=== PATIENT | male | born 1965 | race African-American/Black ===

== ENCOUNTER 2018-08-05 14:50 | Observation (INO) | payer BC ==
[2018-08-05] MEDS ORDERED: NA CHLORIDE 0.9% 1,000 ML ONE (15:19)
[2018-08-05] MEDS ORDERED: ASPIRIN 81 MG CHEWABLE TABLET ONE (15:19)
[2018-08-05] MEDS ORDERED: NITROGLYCERIN 0.4 MG/TAB SL ONE (15:19)
[2018-08-05] MEDS ORDERED: ACETAMINOPHEN 500 MG TAB ONE (15:32)
[2018-08-05 15:39] LABS: Protime INR 0.98
[2018-08-05 15:51] LABS: Absolute Lymphocytes (CBC) 2.5 K/uL (0.7-4.9); Absolute Monocytes 0.6 K/uL (0.1-1.3); Absolute Neutrophil 1.9 K/uL (1.8-8.0); Eosinophils % 2.8 % (0-4.4); Hematocrit 45.2 % (39.6-49.0); Lymphocytes % 47.9 % (15.3-44.8); MCH 32.9 pg (27.0-35.0); MCV 92.7 fL (80-100); MPV 8.3 fL (7.6-11.3); RBC Red Blood Cell Count 4.87 M/uL (4.33-5.43)
[2018-08-05 15:55] LABS: ALT/SGPT 19 U/L (12-78); AST/SGOT 20 U/L (15-37); Albumin 3.8 g/dL (3.4-5.0); Alkaline Phosphatase 118 U/L (45-117); BUN Blood Urea Nitrogen 13 mg/dL (7-18); Bicarbonate 23 mmol/L (21-32); Bilirubin Direct 0.1 mg/dL (0-0.2); Bilirubin Total 0.5 mg/dL (0.2-1.0); Glucose Level 81 mg/dL (74-106); Lipase 172 U/L (73-393); Magnesium 2.3 mg/dL (1.8-2.4); NT PRO-BNP 44 pg/mL (<125); Potassium 3.9 mmol/L (3.5-5.1); Protein, Total 7.8 g/dL (6.4-8.2); Sodium Level 140 mmol/L (136-145); Troponin (Emerg Dept Use Only) < 0.02 ng/mL (0.0-0.045)
[2018-08-05] MEDS ORDERED: FENTANYL CITR 100 MCG/2 ML ONE (16:33)
--- NOTE | 2018-08-05 17:08 | RAD REPORT ---
EXAM DESCRIPTION: CT - Chest Angio - 08/05/2018 4:41 pm CLINICAL HISTORY: Chest pain COMPARISON: None. TECHNIQUE: Dynamically enhanced axial 3 mm thick images of the chest were obtained during administra tion of <100> mL Isovue 370 IV contrast. Coronal and oblique reconstruction images were generated and reviewed. Exam utilizes a protocol for optimal evaluation of pulmonary arterial tree. Maximum intensity projections 3D imaging was utilized All CT scans are performed using dose optimization technique as appropriate and may include automated exposure control or mA/KV adjustment according to patient size. FINDINGS: A pulmonary embolus is not seen. Prominence of the main pulmonary artery may indicate pulm onary arterial hypertension A thoracic aortic aneurysm is not noted. A pleural effusion is not seen. A pericardial effusion is not seen. A lung consolidation is not present. Left upper lobe bulla are present. Largest measures 5 centimeter s IMPRESSION: Negative for a pulmonary embolism.
--- NOTE | 2018-08-05 17:09 | RAD REPORT ---
EXAM DESCRIPTION: Brittany Single View08/05/2018 3:36 pm CLINICAL HISTORY: Chest pain COMPARISON: December 2017 FINDINGS: A few areas of scarring are present within the left lung. Right lung appears clear. Heart is normal size
--- NOTE | 2018-08-05 18:02 | EDPHYS ---
Physician Documentation [facility] Name: Vu Park Age: 52 yrs Sex: Male : 1965 Arrival Date: 08/05/2018 Time: 14:58 Bed 30 Private MD: ED Physician John Sadler HPI: 08/05 15:15 This 52 yrs old Black Male presents to ER via Ambulatory with complaints of Shortness cp Of Breath, Chest Pain. 15:15 The patient or guardian reports chest pain that is located primarily in the anterior cp chest wall, left. 15:15 Onset: this morning, at 09:00. The pain radiates to the left arm. cp 15:15 The chest pain is described as aching. cp 15:15 Duration: The patient or guardian reports multiple episodes, that are intermittent. cp Historical: - Allergies: 15:01 Vicodin; hb - Home Meds: 15:01 Pravachol Oral [Active]; hb - PMHx: 15:01 Hyperlipidemia; Hypertension; hb - Immunization history:: Adult Immunizations up to date. - Social history:: Smoking status: Patient uses tobacco products, cigars. - Ebola Screening: : No symptoms or risks identified at this time. ROS: 15:20 Constitutional: Negative for body aches, chills, fever, poor PO intake. cp 15:20 Eyes: Negative for injury, pain, redness, and discharge. cp 15:20 ENT: Negative for drainage from ear(s), ear pain, sore throat, difficulty swallowing, difficulty handling secretions. 15:20 Neck: Negative for pain with movement, pain at rest, stiffness, tenderness, bony tenderness. 15:20 Cardiovascular: Positive for chest pain, Negative for edema, palpitations. 15:20 Respiratory: Positive for shortness of breath, Negative for cough, wheezing. 15:20 Abdomen/GI: Negative for abdominal pain, nausea, vomiting, and diarrhea, constipation, black/tarry stool, rectal bleeding. 15:20 Back: Negative for pain at rest, pain with movement, radiated pain. 15:20 : Negative for urinary symptoms. 15:20 Skin: Negative for cellulitis, diaphoresis, rash. 15:20 Neuro: Negative for altered mental status, headache, loss of consciousness, syncope, near syncope, weakness. 15:20 All other systems are negative. Exam: 15:15 ECG was reviewed by the Attending Physician. cp 15:30 Constitutional: The patient appears alert, awake, non-diaphoretic, non-toxic, well cp developed, well nourished, in obvious pain, uncomfortable. 15:30 Head/Face: Normocephalic, atraumatic. cp 15:30 Eyes: Pupils equal round and reactive to light, extra-ocular motions intact. Lids and cp lashes normal. Conjunctiva and sclera are non-icteric and not injected. Cornea within normal limits. Periorbital areas with no swelling, redness, or edema. ENT: Nares patent. No nasal discharge, no septal abnormalities noted. Tympanic membranes are normal and external auditory canals are clear. Oropharynx with no redness, swelling, or masses, exudates, or evidence of obstruction, uvula midline. Mucous membranes moist. Neck: Trachea midline, no thyromegaly or masses palpated, and no cervical lymphadenopathy. Supple, full range of motion without nuchal rigidity, or vertebral point tenderness. No Meningismus. Chest/axilla: Normal chest wall appearance and motion. Nontender with no deformity. No lesions are appreciated. 15:30 Cardiovascular: Rate: normal, Rhythm: regular, Heart sounds: murmur, not appreciated, cp rub, not appreciated, gallop, not appreciated, Edema: is not appreciated, JVD: is not appreciated. 15:30 Respiratory: the patient does not display signs of respiratory distress, Respirations: normal, no use of accessory muscles, no retractions, no splinting, no tachypnea, labored breathing, is not present, Breath sounds: are clear throughout, no decreased breath sounds, no stridor, no wheezing. 15:30 Abdomen/GI: Inspection: abdomen appears normal, Bowel sounds: active, all quadrants, Palpation: abdomen is soft and non-tender, in all quadrants, rebound tenderness, is not appreciated, involuntary guarding, is not appreciated. 15:30 Back: pain, is absent, ROM is normal. 15:30 Skin: cellulitis, is not appreciated, no rash present. 15:30 Neuro: Orientation: to person, place \T\ time. Mentation: lucid, able to follow commands, Cerebellar function: is grossly normal, Motor: moves all fours, strength is normal, Sensation: no obvious gross deficits. Vital Signs: 15:00 BP 140 / 90; Pulse 76; Resp 16; Temp 98; Pulse Ox 99% on R/A; Pain 8/10; hb 15:40 BP 134 / 90; Pulse 63; Resp 18; Pulse Ox 97% on R/A; Pain 5/10; mg2 16:23 BP 120 / 78; Pulse 70; Resp 18; Pulse Ox 98% ; Pain 4/10; mg2 17:41 BP 118 / 76; Pulse 55; Resp 18; Pulse Ox 98% on R/A; Pain 2/10; mg2 18:45 BP 125 / 79; Pulse 56; Resp 17; Pulse Ox 100% on R/A; mg2 19:40 BP 144 / 93; Pulse 58; Resp 18; Pulse Ox 100% on R/A; Pain 0/10; mg2 MDM: 15:02 Patient medically screened. cp 16:00 Differential diagnosis: abnormal EKG, acute myocardial infarction, acute pericarditis, cp chest wall pain, pancreatitis, pleurisy, pneumonia, pneumothorax, pulmonary embolus, stable angina, thoracic aortic disection, unstable angina. 17:32 The patient was given aspirin in the Emergency Department. Data reviewed: vital signs, nurses notes, lab test result(s), EKG, radiologic studies, CT scan, plain films. Test interpretation: by ED physician or midlevel provider: ECG, plain radiologic studies. Physician consultation: Yue Tierney MD was called at 17:33, left message on voicemail. 08/05 15:09 Order name: Basic Metabolic Panel 08/05 15:09 Order name: CBC with Diff 08/05 15:09 Order name: LFT's 08/05 15:09 Order name: Magnesium; Complete Time: 16:07 08/05 15:09 Order name: NT PRO-BNP; Complete Time: 16:07 cp 08/05 15:09 Order name: PT-INR; Complete Time: 16:07 08/05 15:09 Order name: Troponin (emerg Dept Use Only); Complete Time: 16:07 08/05 17:19 Interpretation: Within normal limits: TROPED < 0.02. 08/05 15:09 Order name: Lipase; Complete Time: 16:07 08/05 15:10 Order name: Basic Metabolic Panel; Complete Time: 16:07 EDDC 08/05 17:10 Interpretation: Normal except: CL 110; GFR 77. cp 15:10 Order name: CBC with Automated Diff; Complete Time: 16:07 EDDC 08/05 17:18 Interpretation: Normal except: MORA% 36.3; LYM% 47.9. / 15:10 Order name: Liver (Hepatic) Function; Complete Time: 16:07 EDDC 08/05 17:19 Interpretation: Normal except: ALK 118; GLOB 4.0; A/G 1.0. 08/05 18:23 Order name: Basic Metabolic Panel EDMS 08/05 18:23 Order name: Basic Metabolic Panel EDDC 08/05 18:23 Order name: CBC with Automated Diff EDDC 08/05 15:09 Order name: XRAY Chest (1 view); Complete Time: 17:18 08/05 17:18 Interpretation: Report review. 08/05 15:09 Order name: EKG; Complete Time: 15:10 08/05 15:23 Order name: CT Chest Angio; Complete Time: 17:09 08/05 17:19 Interpretation: Report reviewed. 08/05 18:23 Order name: CONS Physician Consult EDDC 08/05 18:23 Order name: Echo with Doppler EDDC 08/05 18:23 Order name: CBC with Automated Diff EDDC 08/05 18:23 Order name: Lipid Profile EDDC 08/05 18:23 Order name: Lipid Profile EDDC 08/05 18:23 Order name: Troponin I EDDC 08/05 18:23 Order name: Troponin I EDDC 08/05 18:23 Order name: Troponin I EDDC 08/05 15:09 Order name: Cardiac monitoring; Complete Time: 15:19 08/05 15:09 Order name: EKG - Nurse/Tech; Complete Time: 15:19 08/05 15:09 Order name: IV Saline Lock; Complete Time: 15:20 08/05 15:09 Order name: Labs collected and sent; Complete Time: 15:20 08/05 15:09 Order name: O2 Per Protocol; Complete Time: 15:20 08/05 15:09 Order name: O2 Sat Monitoring; Complete Time: 15:20 08/05 18:23 Order name: Heart Healthy EDMS EC:15 Rate is 74 beats/min. Rhythm is regular. MS interval is prolonged at 212 msec. QRS cp interval is prolonged at 112 msec. QT interval is normal. Interpreted by me. Reviewed by me. Administered Medications: 15:19 Drug: Nitroglycerin 0.4 mg Route: Sublingual; mg2 15:41 Follow up: Response: No adverse reaction; Pain is decreased mg2 15:19 Drug: Aspirin Chewable Tablet 324 mg Route: PO; mg2 16:23 Follow up: Response: No adverse reaction mg2 15:19 Drug: NS 0.9% 1000 ml Route: IV; Rate: 1 bolus; Site: right antecubital; mg2 15:31 Drug: Tylenol 1000 mg Route: PO; mg2 16:33 Follow up: Response: No adverse reaction; Pain is unchanged, physician notified mg2 16:48 Drug: fentaNYL (PF) 50 mcg Route: IVP; Site: right antecubital; mg2 18:03 Follow up: Response: No adverse reaction; Marked relief of symptoms mg2 Disposition: 08/05/18 18:01 Hospitalization ordered by Yue Tierney for Observation. Preliminary diagnosis is Chest pain, unspecified. - Bed requested for Telemetry/MedSurg (observation). - Status is Observation. mg2 - Condition is Stable. - Problem is new. - Symptoms have improved. UTI on Admission? No Addendum: 08/08/2018 07:46 Co-signature as Attending Physician, John Sadler MD. r n Signatures: Dispatcher [employer] EDTyra Sheets RN RN kl Nieto, Roman, MD MD rn Page, Corey, PA PA cp María Bruce RN RN Nicholas Gonzalez RN RN mg2 Corrections: (The following items were deleted from the chart) 08/05 19:39 18:01 Hospitalization Ordered by Yue Tierney MD for Observation. Preliminary diagnosis kl is Chest pain, unspecified. Bed requested for Telemetry/MedSurg (observation). Status is Observation. Condition is Stable. Problem is new. Symptoms have improved. UTI on Admission? No. cp 20:16 19:39 08/05/2018 18:01 Hospitalization Ordered by Yue Tierney MD for Observation. mg2 Preliminary diagnosis is Chest pain, unspecified. Bed requested for Telemetry/MedSurg (observation). Status is Observation. Condition is Stable. Problem is new. Symptoms have improved. UTI on Admission? No. kl
--- NOTE | 2018-08-05 18:02 | ER ---
Nurse's Notes [facility] Name: Vu Park Age: 52 yrs Sex: Male : 1965 Arrival Date: 08/05/2018 Time: 14:58 Bed 30 Private MD: Diagnosis: Chest pain, unspecified Presentation: 08/05 14:59 Presenting complaint: Patient states: Left sided chest pain and SOB that started at hb approx 0900 today. Transition of care: patient was not received from another setting of care. Onset of symptoms was August 05, 2018. Risk Assessment: Do you want to hurt yourself or someone else? Patient reports no desire to harm self or others. Care prior to arrival: None. 14:59 Acuity: SHELBY 3 hb 14:59 Method Of Arrival: Ambulatory hb 15:40 Initial Sepsis Screen: Does the patient meet any 2 criteria? No. Patient's initial mg2 sepsis screen is negative. Does the patient have a suspected source of infection? No. Patient's initial sepsis screen is negative. Triage Assessment: 17:45 General: Appears comfortable. Respiratory: the patient has mild shortness of breath. mg2 Historical: - Allergies: 15:01 Vicodin; hb - Home Meds: 15:01 Pravachol Oral [Active]; hb - PMHx: 15:01 Hyperlipidemia; Hypertension; hb - Immunization history:: Adult Immunizations up to date. - Social history:: Smoking status: Patient uses tobacco products, cigars. - Ebola Screening: : No symptoms or risks identified at this time. Screenin:20 Abuse screen: Denies threats or abuse. Denies injuries from another. Nutritional mg2 screening: No deficits noted. Tuberculosis screening: No symptoms or risk factors identified. Fall Risk IV access (20 points). Assessment: 15:20 General: Appears in no apparent distress. comfortable, Behavior is calm, cooperative. mg2 Pain: Complains of pain in chest Pain radiates to left arm Pain currently is 6 out of 10 on a pain scale. Quality of pain is described as aching, Pain began gradually, 6 hours ago. Neuro: Level of Consciousness is awake, alert, obeys commands, Oriented to person, place, time, situation, Reports headache. Cardiovascular: Capillary refill < 3 seconds Patient's skin is warm and dry. Respiratory: Airway is patent Respiratory effort is even, unlabored. GI: No deficits noted. : No signs and/or symptoms were reported regarding the genitourinary system. EENT: No signs and/or symptoms were reported regarding the EENT system. Derm: Skin is intact, is healthy with good turgor, Skin is pink, warm \T\ dry. normal. Musculoskeletal: No signs and/or symptoms reported regarding the musculoskeletal system. 16:33 Reassessment: patient sent to ct scan. Cardiovascular: Rhythm is regular. Respiratory: mg2 Breath sounds are clear. 18:44 Reassessment: Patient appears in no apparent distress at this time. Patient and/or mg2 family updated on plan of care and expected duration. Pain level reassessed. Patient is alert, oriented x 3, equal unlabored respirations, skin warm/dry/pink. dr thea jones came and advised for admission. still awaiting for bed assignment. Vital Signs: 15:00 BP 140 / 90; Pulse 76; Resp 16; Temp 98; Pulse Ox 99% on R/A; Pain 8/10; hb 15:40 BP 134 / 90; Pulse 63; Resp 18; Pulse Ox 97% on R/A; Pain 5/10; mg2 16:23 BP 120 / 78; Pulse 70; Resp 18; Pulse Ox 98% ; Pain 4/10; mg2 17:41 BP 118 / 76; Pulse 55; Resp 18; Pulse Ox 98% on R/A; Pain 2/10; mg2 18:45 BP 125 / 79; Pulse 56; Resp 17; Pulse Ox 100% on R/A; mg2 19:40 BP 144 / 93; Pulse 58; Resp 18; Pulse Ox 100% on R/A; Pain 0/10; mg2 ED Course: 14:58 Patient arrived in ED. aj1 15:00 Triage completed. hb 15:00 Arm band placed on. hb 15:02 Jasper Nick PA is PHCP. cp 15:02 John Sadler MD is Attending Physician. cp 15:03 Nicholas Gonzalez RN is Primary Nurse. mg2 15:09 EKG done, by client technical support associate. reviewed by Jasper COOPER. sm3 15:20 No provider procedures requiring assistance completed. Inserted saline lock: 20 gauge mg2 in right antecubital area, using aseptic technique. Blood collected. 15:31 Radiology exam delayed due to lab results not completed at this time. (BUN/Creatinine). mw3 15:35 X-ray completed. Portable x-ray completed in exam room. Patient tolerated procedure ml well. 15:37 XRAY Chest (1 view) In Process Unspecified. EDMS 16:[address] sj 16:41 CT Chest Angio In Process Unspecified. EDMS 17:46 Patient has correct armband on for positive identification. night monitor on. Pulse mg2 ox on. NIBP on. Door closed. Warm blanket given. 17:59 Yue Tierney MD is Hospitalizing Provider. cp 19:51 Patient admitted, IV remains in place. mg2 Administered Medications: 15:19 Drug: Nitroglycerin 0.4 mg Route: Sublingual; mg2 15:41 Follow up: Response: No adverse reaction; Pain is decreased mg2 15:19 Drug: Aspirin Chewable Tablet 324 mg Route: PO; mg2 16:23 Follow up: Response: No adverse reaction mg2 15:19 Drug: NS 0.9% 1000 ml Route: IV; Rate: 1 bolus; Site: right antecubital; mg2 15:31 Drug: Tylenol 1000 mg Route: PO; mg2 16:33 Follow up: Response: No adverse reaction; Pain is unchanged, physician notified mg2 16:48 Drug: fentaNYL (PF) 50 mcg Route: IVP; Site: right antecubital; mg2 18:03 Follow up: Response: No adverse reaction; Marked relief of symptoms mg2 Outcome: 18:01 Decision to Hospitalize by Provider. cp 19:51 Admitted to Tele accompanied by tech, via wheelchair, room 424, with chart, Report mg2 called to MATHEW guthrie 19:51 Condition: stable 19:51 Instructed on the need for admit, Demonstrated understanding of instructions. 20:16 Patient left the ED. mg2 Signatures: Dispatcher [employer] EDMS Suzanne Nixon, RN RN aj1 Carla Blas Melissa ml Page, Corey, PA PA cp María Bruce RN RN hb Gardose, Michele, RN RN mg2 Vanessa Coats 3 Marylou Walters mw3
[2018-08-05] MEDS ORDERED: MORPHINE 4 MG/ML SYR IV PRN (18:18)
[2018-08-05] MEDS ORDERED: ACETAMINOPHEN 500 MG TAB PO PRN (18:18)
[2018-08-05] MEDS ORDERED: NITROGLYCERIN 0.4 MG/TAB SL PRN (18:31)
[2018-08-05] MEDS: ATORVASTATIN 40 MG TAB PO SCH (21:33)
[2018-08-05] MEDS: ENOXAPARIN 40 MG/0.4 ML SQ SCH (21:33)
[2018-08-05 23:43] VITALS: BMI 16.7
--- NOTE | 2018-08-06 03:10 | HP ---
Date of Admission: 08/05/2018 Chief Complaint: Chest pain. Primary Care Physician: Dr. Gonzalez. Hpi: The patient is a 52-year-old male with past medical history of hypertension, hyperlipidemia, an d nicotine dependence, who comes in with sudden onset of chest pain that woke him up this morning, la sted for approximately half an hour, was in the left substernal region. The patient also noted some numbness and tingling of his left arm associated with the chest pain. The patient had shortness of b reath, however, denied any nausea, vomiting, or diaphoresis. No palpitations. The patient's pain ea sed up, however, he had recurrence of his pain in approximately half an hour and did not subside. Th erefore, patient came into the ER for further evaluation. His symptoms are constant, moderate, progr essively worsening. Upon arrival, his workup revealed negative cardiac enzymes. EKG showed right bu ndle-branch block, diminished T-waves. His imaging studies including CT angio chest was negative for PE. Did have a left upper lobe bulla, largest measuring 5 cm. The patient was then referred for ad mission. When seen in the ER, he was awake, alert, oriented x3, in some mild distress. Stated that the aspirin and nitroglycerin helped. Past Medical History: Hypertension, hyperlipidemia. Surgical History: None. Allergies: TO VICODIN. Medications: The patient takes Pravachol, was recently taken off the lisinopril due to hypertension. Social History: The patient smokes cigars almost on a daily basis. Drinks alcohol occasionally. De nies any illicit drug use. Family History: States that most common medical conditions are rampant in his family including hyper tension, hyperlipidemia, and heart disease. He denies any MIs in his male relatives at an early age. Review of Systems: An 11-point system reviewed, negative except as per HPI. Physical Examination: Vital Signs: Blood pressure 140/90, pulse 76, respirations 16, temperature 98, O2 99% on room air. General: Awake, alert, oriented x3, in some mild distress. HEENT: Normocephalic, atraumatic. PERRLA. EOMI. Moist mucous membranes. Oropharynx is clear. Co njunctivae anicteric. Neck: Supple. No JVD. Trachea midline. CV: S1, S2. Regular rate and rhythm. Sinus bradycardia. Peripheral pulses are present. No murmur s. Respiratory: Moving air well bilaterally. No wheezing or stridor. No use of accessory muscles. Gastrointestinal: Abdomen is soft, nontender, nondistended. Positive bowel sounds. No guarding or rigidity. Extremities: No clubbing, cyanosis, or edema. No calf tenderness. Neuro: Cranial nerves 2 through 12 intact grossly. No focal neurological deficit. Skin: No rashes. Normal skin turgor. Psych: Mood is okay. Affect is full. Insight and judgment are good. Imaging Studies: CT angio chest shows negative for PE, lung consolidation not present. Left upper l obe bulla present, largest measures 5 cm. Chest x-ray shows a few areas of scarring within the left lung. Right lung appears clear. Heart is normal in size. EKG showed sinus rhythm, first-degree AV block, right bundle-branch block. Assessment And Plan: A 52-year-old male with: 1.Chest pain, rule out acute coronary syndrome. Initial cardiac enzymes and troponin negative. We will obtain serial cardiac enzymes and EKG. Obtain Cardiology consultation. We will start on chest pain guidelines with ONEL inhibitor, aspirin, and statin. No beta-herb due to bradycardia. The pa tient's heart rate in the 40s. 2.Essential hypertension, diet controlled. 3.Hyperlipidemia, on Pravachol. Continue statin and check lipid panel in a.m. 4.Nicotine dependence with cigar smoking, uncomplicated. Counseled. Plan: Admit the patient to Med-Surg, place as observation. We will obtain echocardiogram. May need stress test. RIKKI Voice ID: [id number]
[2018-08-06 03:47] LABS: Urine Appearance CLEAR; Urine Bilirubin NEGATIVE (NEG); Urine Blood NEGATIVE (NEG); Urine Color YELLOW; Urine Glucose NEGATIVE (NEG); Urine Microscopic Reflex NO UMIC; Urine Protein NEGATIVE (NEG); Urine Urobilinogen 0.2 mg/dL (0.2-1.0)
[2018-08-06 05:34] LABS: Absolute Lymphocytes (CBC) 1.5 K/uL (0.7-4.9); Absolute Monocytes 0.5 K/uL (0.1-1.3); Absolute Neutrophil 1.8 K/uL (1.8-8.0); Eosinophils % 4.7 % (0-4.4); Hematocrit 40.1 % (39.6-49.0); Lymphocytes % 37.9 % (15.3-44.8); MCH 33.2 pg (27.0-35.0); MCV 92.8 fL (80-100); Monocytes % 11.7 % (3.3-12.3); RBC Red Blood Cell Count 4.32 M/uL (4.33-5.43)
--- NOTE | 2018-08-06 08:27 | EKG ---
Test Date: 2018-08-05 Test Time: 15:07:48 House Mother: LEONIE MEASUREMENT RESULTS: Intervals: Rate: 74 NJ: 212 QRSD: 112 QT: 388 QTc: 430 [place]: P: 74 NJ: 212 QRS: 65 T: 56 INTERPRETIVE STATEMENTS: Sinus rhythm with 1st degree AV block Incomplete right bundle branch block Borderline ECG Compared to ECG 12/21/2015 15:26:32 No significant changes Electronically Signed On 08-06-18 08:26:46 CDT by Enrike Quintero
[2018-08-06] MEDS: ENOXAPARIN 40 MG/0.4 ML SQ SCH (09:45)
[2018-08-06] MEDS: ASPIRIN EC 81 MG TAB PO SCH (09:46)
[2018-08-06] MEDS: LISINOPRIL 10 MG TAB PO SCH (09:46)
--- NOTE | 2018-08-06 12:19 | RAD REPORT ---
EXAM DESCRIPTION: CT - Head C Spine Mpr Wo Con - 08/06/2018 11:49 am CLINICAL HISTORY: Headache and arm numbness COMPARISON: December [address] TECHNIQUE: Computed axial tomography of the head and cervical spine was obtained. Sagittal and coronal reconstruction was performed. All CT scans are performed using dose optimization technique as appropriate and may include automated exposure control or mA/KV adjustment according to patient size. FINDINGS: An intracranial bleed is not seen. The ventricles are normal in caliber. An extra-axial fl uid collection is not noted.Fluid within the visualized sinuses and mastoids is not seen A cervical fracture is not visualized. No dislocation is noted. A small to moderate central disc herniation is suspected C3-4. Spondylosis C4-5 results in mild narrowing of the thecal sac..Moderate narrowing of left neural pedro gemini is seen. Spondylosis C6-7 results in mild to moderate narrowing of the neural foramina bilaterally. Right posterolateral disc osteophyte complex complex C7-T1 results in moderate to marked narrowing of the right neural foramina IMPRESSION: No acute intracranial abnormality is seen. A cervical fracture is not visualized. Small to mild central disc herniation C3-4. Spondylosis C4-5 resulting in mild central and moderate left foraminal stenosis Right posterolateral disc osteophyte complex resulting in moderate to marked right foraminal stenosi s If clinically indicated further evaluation with MRI could be obtained
[2018-08-06] MEDS: NICOTINE 14 MG/PAT TD SCH (13:49)
--- NOTE | 2018-08-06 14:16 | CON ---
History Of Present Illness: Mr. Park is a 52. He started having pain in his left arm, tingling in some of the fingers, mostly in the distribution of the ulnar nerve, and he feels like a knot in his chest. It lasted about 5 minutes. He had 3 episodes in 1 day like that. Came to the emergency room . One of the episodes occurred while he was in the emergency room. Monitor did not show any change in rhythm or ST segments. He reports a drug intolerance to Vicodin. He takes Pravachol. Apparently , he was on lisinopril, but it causes blood pressure to get too low. He smokes cigars about 2 or 3 a week, but not cigarettes or daily smoking. He has never had myocardial infarction, stroke, never be en treated for diabetes. Physical Examination: General: 5 feet 11 inches, our charts says 120 pounds, but I am sure that is an error. He is not a thin or emaciated man. I would estimate his body weight to be closer to 220. HEENT: Normal. Carotids no Doppler, no bruit. Lungs: Clear. Heart: Within normal limits. No friction rub. Abdomen: Soft. Extremities: Normal. No cyanosis, clubbing, or edema. Diagnostic Data: His EKG shows first degree AV block, incomplete right bundle. No infarction, injur y, or ischemia. Laboratory Data: Reveals normal hemoglobin, hematocrit, normal clotting blood sugars are normal. On e calcium level is normal. The preadmission one was normal. His alkaline phosphatase is minimally h igh at 118. Troponins are normal. His total cholesterol is 145, LDL 88, lipase levels 172. Impression: This is probably not an acute coronary syndrome. The patient should have an echo and a stress test. I am not sure he needs to wait, but since he had 3 episodes of chest pain yesterday, I have asked him to stay overnight. If he is free of any pain or any other signs of instability, he could be discharged and do an outpatient stress test and echocardiogram. JONATHAN Voice ID: [id number] Report ID: [id number]
[2018-08-06] MEDS: GABAPENTIN 300 MG CAP PO SCH ×2 (15:52→21:20)
--- NOTE | 2018-08-06 17:14 | PN ---
Date of Progress Note: 08/06/2018 History: The patient is seen and examined. Chart reviewed and case discussed with RN. The patient still complaining of pain, which has now radiated to his back. He also reports some numbness and tin gling of his left arm. The patient states his chest pain is better. Review of Systems: Negative except as above. Medications: As per list. Physical Examination: Vital Signs: Temperature 96.8, heart rate 57, blood pressure 131/79, respirations 18, O2 96% on room air. General: Awake, alert, oriented x3, in some mild distress due to pain. CV: S1, S2. No murmurs. Regular rate and rhythm. Gastrointestinal: Abdomen is soft, nontender, nondistended. Positive bowel sounds. Respiratory: Clear to auscultation bilaterally. No wheezing or stridor. Extremities: No clubbing, cyanosis, or edema. Neuro: Nonfocal. The patient does have some numbness and tingling of his left upper extremity. Musculoskeletal: No tenderness to palpation of the cervical spine. Does have some pain with neck ex tension. Laboratory Data: Sodium 142, potassium 4, chloride 110, CO2 26, BUN 15, creatinine 1.1, glucose 87, calcium 8.3, cardiac enzymes 0.02 x3. Triglycerides 106, cholesterol 145, LDL 88, HDL 36. WBC 4, H and H 14.4 and 40.1, platelets 201. Head CT cervical spine shows no acute intracranial abnormalities . Cervical fracture not visualized. Small to mild central disk herniations C3-C4, spondylosis C4-C5 resulting in mild central and moderate left foraminal stenosis, right posterior lateral disk osteoph yte complex resulting in moderate to marked right foraminal stenosis. Assessment And Plan: A 52-year-old male with: 1.Chest pain, rule out acute coronary syndrome. Cardiac enzymes are negative. Unable to obtain ech ocardiogram today. We will continue on chest pain guidelines. The patient now complaining of pain r adiating to the back. A CT angio was negative for pulmonary embolism. Blood pressure is well contro lled. We will continue to observe. Beta-herb held due to bradycardia. 2.Essential hypertension, diet controlled. 3.Left arm numbness and tingling, likely due to cervical radiculopathy. The patient has history of cervical spine disk bulge and a CT head was negative. 4.Headache, improved with medication. 5.Hyperlipidemia. Continue Pravachol. LDL is low. Normal triglycerides and total cholesterol. 6.Nicotine dependence with cigar smoking, uncomplicated. Counseled. Plan: Likely have stress test in a.m. We will follow up with Dr. Quintero' recommendations. We will start on gabapentin for cervical radiculopathy. /KENNY Voice ID: [id number] Report ID: [id number]
[2018-08-06] MEDS: ATORVASTATIN 40 MG TAB PO SCH (21:20)
[2018-08-07] MEDS: ENOXAPARIN 40 MG/0.4 ML SQ SCH (08:22)
[2018-08-07] MEDS: NICOTINE 14 MG/PAT TD SCH (08:22)
[2018-08-07] MEDS: ASPIRIN EC 81 MG TAB PO SCH (08:23)
[2018-08-07] MEDS: GABAPENTIN 300 MG CAP PO SCH (08:23)
[2018-08-07] MEDS: LISINOPRIL 10 MG TAB PO SCH (08:25)
[2018-08-07 10:54] VITALS: O2SAT 98
[2018-08-07 12:35] VITALS: BP 140/82; TEMP 97
--- NOTE | 2018-08-08 04:47 | DS ---
Date of Discharge: 08/07/2018 Consultants: Dr. Quintero with Cardiology. Procedures: None. Discharge Diagnoses: 1.Chest pain, acute coronary syndrome ruled out. 2.Right upper extremity radiculopathy. 3.Cervical spondylosis. 4.Essential hypertension. 5.Hyperlipidemia. 6.Nicotine dependence with cigar smoking, uncomplicated. Counseled. Hospital Course: The patient is a 52-year-old male with past medical history of hypertension, hyperl ipidemia, nicotine dependence, comes in with chest pain. The patient was admitted to the hospital to rule out ACS. The patient's chest pain did worsen radiating to the back. CT angio chest was done, which ruled out any pulmonary embolism. His EKG did not show any acute changes other than bradycardi a. The patient was recommended to have a stress test and echocardiogram as an outpatient. However, due to his recurrent chest pain, he was observed for an additional night. His symptoms did improve w ith treatment. His cardiac enzymes were negative x3. His lipid panel showed low HDL. He does take statin. The patient did complain of right arm numbness and tingling. He did report history of cervi mary spondylosis. CT scan was done of the head and C-spine as he also had recurrent headaches which w ere intractable. There was no intracranial abnormality seen on the CT scan. The patient did have a disk herniation at C3-C4, spondylosis C4-C5 resulting in mild central and moderate left foraminal latosha nosis and right foraminal stenosis. The patient has seen Neurosurgery in the past, however, laminect daily was not done. We will recommend the patient to seek consultation with Neurology and be referred to Neurosurgery for possible intervention. The patient was started on gabapentin which relieved his numbness and tingling. The patient was also counseled regarding his smoking. He was placed on a floresita otine patch, which improved his craving. The patient did not go down to smoke. The patient was then cleared for discharge as his chest pain resolved. Did not have any changes on the monitoring specialist. The patient will follow up with Dr. Quintero this week for outpatient stress test and echocardiogram. Followup: Follow up with primary care physician in 2 to 3 days. Establish care with neurologist and possible referral to a neurosurgeon in 2 to 4 weeks. Return to ER for worsening condition. Diet: Heart healthy. Quit smoking. Activity: As tolerated. No driving or operating heavy machinery while on gabapentin. Medications: As per medication reconciliation list. Physical Examination: General: Awake, alert, oriented, no acute distress. CV: S1, S2. No murmurs. Respiratory: Moving air well bilaterally. Gastrointestinal: Abdomen is soft, nontender, nondistended. Positive bowel sounds. Extremities: No clubbing, cyanosis, edema. Neuro: Nonfocal. SA/MODL Voice ID: [id number] Report ID: [id number]
== END 2018-08-07 12:05 | disposition home or self-care (01) ==
LOC: ER 14:50 → ERHOLD 18:03 → 4TH 19:54
PROVIDERS: ADMIT Family Medicine; ATTEND Family Medicine
DX: R07.9 Chest pain, unspecified (principal); M47.22 Other spondylosis with radiculopathy, cervical region; I10 Essential (primary) hypertension; E78.5 Hyperlipidemia, unspecified; F17.290 Nicotine dependence, other tobacco product, uncomplicated
CPT/HCPCS: 36415; 70450; 71045; 71275; 72125; 80048; 80061; 80076; 81003; 83690; 83735; 83880; 84484; 85025; 85610; 93005; 94760; 96374; 99285; G0378; J1650; J3010; J7030; Q9967

== ENCOUNTER 2020-12-30 05:11 | Emergency (ER) | payer BC ==
[2020-12-30] MEDS ORDERED: METOCLOPRAMIDE 10 MG/2mL INJ ONE (06:00)
[2020-12-30] MEDS ORDERED: NA CHLORIDE 0.9% 1,000 ML ONE (06:00)
[2020-12-30] MEDS ORDERED: DIPHENHYDRAMINE 50 MG/ML VIAL ONE (06:00)
[2020-12-30 06:16] LABS: Absolute Lymphocytes (CBC) 1.1 K/uL (0.7-4.9); Basophils % 0.6 % (0-1.3); Hematocrit 41.7 % (39.6-49.0); Lymphocytes % 14.6 % (15.3-44.8); MPV 7.7 fL (7.6-11.3); RBC Red Blood Cell Count 4.49 M/uL (4.33-5.43)
[2020-12-30 06:46] LABS: Albumin 3.7 g/dL (3.4-5.0); Bilirubin Direct 0.1 mg/dL (0-0.2); Bilirubin Total 0.5 mg/dL (0.2-1.0); Potassium 3.8 mmol/L (3.5-5.1); Protein, Total 7.6 g/dL (6.4-8.2)
[2020-12-30] MEDS ORDERED: KETOROLAC 30 MG/ML INJ ONE (07:19)
[2020-12-30] MEDS ORDERED: HYDROMORPHONE HCL 1 MG/ML INJ ONE ×2 (08:06→15:14)
--- NOTE | 2020-12-30 11:48 | RAD REPORT ---
EXAM DESCRIPTION: CT - CTHCSPWOC - 12/30/2020 7:13 am CLINICAL HISTORY: Pain COMPARISON: CT head and cervical spine 08/06/2018 images without report. TECHNIQUE: Head/brain and cervical spine axial images acquired without contrast. Coronal and sagitta l reformats created. Exam performed according to departmental dose-optimization program which include s automated exposure control, adjustment of mA and/or kV according to patient size, and/or use of ite rative reconstruction technique. FINDINGS: Head/Brain- No midline shift, mass effect, intracranial hemorrhage, or hydrocephalus. Brain parenchyma unremarkable. Paranasal sinuses and mastoid air cells clear. No skull fracture or significant skull lesion. Cervical Spine- Moderate cervical spine kyphosis. No fracture or subluxation. Moderate-sized, anterolateral, endplate osteophytes throughout cervical spine. Marked, atlantodental, degenerative joint changes. Moderate disc height loss at C4/C5, C5/C6, C6/C7, and C7/T1. Moderate, bilateral, uncovertebral and facet, degenerative joint changes throughout cervical spine. Multilevel cervical spine degenerative changes causing varying degrees of central canal and neurofora cassi stenosis. Mild thyromegaly. Large left apical bullae again seen. IMPRESSION: 1. Head/Brain- Unremarkable CT head without contrast. 2. Cervical Spine- Moderate cervical spine degenerative disease. Electronically signed by: Brady Powell MD 12/30/2020 6:40 AM CDT Due to temporary technical issues with the PACS/Fluency reporting system, reports are being signed by the in house radiologist without review as a courtesy to ensure prompt reporting. The interpreting r adiologist is fully responsible for the content of the report.
--- NOTE | 2020-12-30 12:39 | RAD REPORT ---
EXAM DESCRIPTION: MRI - Brain W/Wo Cont - 12/30/2020 12:21 pm CLINICAL HISTORY: HEADACHE, blurred vision, bilateral arm weakness, presyncope COMPARISON: Head C Spine Mpr Wo Con dated 12/30/2020 TECHNIQUE: Sagittal and axial T1-weighted images were obtained. Axial PD/heavily T2-weighted and T2- FLAIR images were obtained along with axial DWI/ADC mapping sequences. Coronal heavily T2 weighted s equence obtained. Axial and coronal post-contrast T1-weighted images were also obtained. A ml Multi lissette contrast following utilized. FINDINGS: No intracranial hemorrhage, mass or acute infarction. There is no edema or shift of midli ne structures. No extra-axial fluid collections. Arriaga-matter/white matter junction is preserved. Sig nal voids are seen as a normal finding in the major intracranial vessels. No atrophy changes are pres ent. Ventricles are normal. Patient has approximately 3 mm of tonsillar ectopia. Inferior margin tons ils has a smooth rounded contour. Patient has rare punctate foci of hyperintense T2/IR signal in the cerebral white matter. No associat ed enhancement. These foci are nonspecific. Such foci can be seen in normally cognitive patients. Ear ly chronic ischemic change is possible. Vasculitis, migraine headache and demyelinating etiologies ar e possible but would need correlation with history. No sella or supra sella abnormality. No globe or orbital content abnormality seen. Cavernous sinus an optic radiation regions of the brain show no abnormal findings. Post-contrast images show normal enhancement. No dural thickening. Mastoid air cells and paranasal sinuses are clear. IMPRESSION: No infarction, mass or acute intracranial finding identifiable. Patient has minimal nonenhancing T2/IR white matter signal abnormalities. These are nonspecific. Find ings can be seen in normally cognitive patients or possibly early chronic ischemic change. Vasculitis , migraine headache and demyelinating etiologies are possible but need supporting clinical findings a nd history.
[2020-12-30] MEDS ORDERED: LORazepam 2 MG/ML VIAL ONE (15:32)
--- NOTE | 2020-12-30 16:12 | RAD REPORT ---
EXAM DESCRIPTION: MRI - C Spine Wo Cont- 12/30/2020 3:41 pm CLINICAL HISTORY: neck pain and weakness, ? cord compression Headache, neck pain COMPARISON: MRICERVICAL SPINE W O CONTR dated 05/28/2014; Head C Spine Mpr Wo Con dated 12/30/2020; Br ain W/Wo Cont dated 12/30/2020 FINDINGS: Cervical vertebral bodies are normal in height and alignment. No suspicious marrow edema or marrow replacing process. No fracture or traumatic subluxation. The craniocervical junction is normal. C2-3 level: No significant findings. C3-4 level: Central disc herniation is present measuring 4-5 mm in anterior-posterior dimension. This attenuates the anterior subarachnoid space, contacts and indents the anterior aspect of the cord and results in moderate central canal stenosis. C4-5 level: Small posterior osteophyte/ disc complex is present asymmetric to the left. This attenuat es the anterior subarachnoid space and contacting the anterior cord. Mild central canal narrowing is seen. Bilateral facet and uncovertebral spurring is present narrowing both exit foramina, greater on the left. C5-6 level: Small posterior osteophyte/ disc complex is present attenuating the anterior subarachnoid space. Bilateral uncovertebral spurring narrows both exit foramina moderately. C6-7 level: Small posterior osteophyte/ disc complex is present with bilateral uncovertebral spurring . Moderate narrowing of both exit foramina noted. C7-T1 level: Central/right paracentral disc herniation is present measuring 3-4 mm. This attenuates t he anterior subarachnoid space and contacts and deforms the anterior cord. [id number] central c anal narrowing. Subtle central cord edema suspected at C3-4. IMPRESSION: Multilevel spondylosis is seen of the cervical spine as detailed. Moderate central canal stenosis with subtle central cord edema appears to be present at C3-4 caused by a prominent disc her niation.
[2020-12-30] MEDS ORDERED: dexAMETHasone 10 MG/ML VIAL ONE (17:13)
--- NOTE | 2020-12-30 17:17 | ER ---
Nurse's Notes [facility] caret Name: Vu Park Age: 55 yrs Sex: Male : 1965 Arrival Date: 12/30/2020 Time: 05:14 Bed 18 Private MD: Davide Gonzalez B Diagnosis: Cervical disc disorder, unspecified-Central Disc prolapse at level of C3/C3 with canal stenosis and central cord edema Presentation: 12/30 05:28 Chief complaint: Patient states: COMPLAINING OF HEADACHE 10/10, SINCE WEDNESDAY NIGHT, rv VERBALIZED FEELING OF SYNCOPE, DENIES FEVER, NAUSEA/VOMITING. Coronavirus screen: Client denies travel out of the [place] in the last 14 days. Ebola Screen: No symptoms or risks identified at this time. Initial Sepsis Screen: Does the patient meet any 2 criteria? No. Patient's initial sepsis screen is negative. Does the patient have a suspected source of infection? No. Patient's initial sepsis screen is negative. Risk Assessment: Do you want to hurt yourself or someone else? Patient reports no desire to harm self or others. Onset of symptoms was December 28, 2020. 05:28 Method Of Arrival: Ambulatory rv 05:28 Acuity: SHELBY 3 rv Triage Assessment: 05:31 Headache History: The patient has had previous headaches and this one is more severe rv than previous episodes. General: Appears uncomfortable, Behavior is calm, cooperative. Pain: Complains of pain in HEADACHE Pain currently is 10 out of 10 on a pain scale. Pain began 2-3 days ago. Also complains of no other associated symptoms. EENT: No signs and/or symptoms were reported regarding the EENT system. Neuro: Level of Consciousness is awake, alert, obeys commands, Oriented to person, place, time, situation, Reports headache that is the "worst ever". Cardiovascular: Patient's skin is warm and dry. Respiratory: Airway is patent Respiratory effort is even, unlabored. Derm: Skin is intact. Historical: - Allergies: 05:30 Vicodin; rv - PMHx: 05:30 Hyperlipidemia; Hypertension; rv - PSHx: 05:30 None; rv - Immunization history:: Adult Immunizations unknown. - Social history:: Smoking status: Patient reports the use of cigarette tobacco products, cigars. Screenin:32 Abuse screen: Denies threats or abuse. Denies injuries from another. Nutritional rv screening: No deficits noted. Tuberculosis screening: No symptoms or risk factors identified. Fall Risk None identified. Assessment: 07:00 General: RECD REPORT FROM PEYTON CARMONA. 55YO BM P/W HEADACHE, H/O SAME. NO CHANGES IN bp NEURO STATUS. Pain: Complains of pain in top of head. 09:00 Reassessment: No changes from previously documented assessment. Patient and/or family bp updated on plan of care and expected duration. Pain level reassessed. Patient is alert, oriented x 3, equal unlabored respirations, skin warm/dry/pink. 10:20 Reassessment: No changes from previously documented assessment. Patient and/or family bp updated on plan of care and expected duration. Pain level reassessed. Patient is alert, oriented x 3, equal unlabored respirations, skin warm/dry/pink. MRI PENDING. 12:30 Reassessment: No changes from previously documented assessment. Patient and/or family bp updated on plan of care and expected duration. Pain level reassessed. Patient is alert, oriented x 3, equal unlabored respirations, skin warm/dry/pink. 14:30 Reassessment: No changes from previously documented assessment. Patient and/or family bp updated on plan of care and expected duration. Pain level reassessed. Patient is alert, oriented x 3, equal unlabored respirations, skin warm/dry/pink. 17:00 Reassessment: No changes from previously documented assessment. Patient and/or family bp updated on plan of care and expected duration. Pain level reassessed. Patient is alert, oriented x 3, equal unlabored respirations, skin warm/dry/pink. TRANSFER INITIATED. 18:00 Reassessment: No changes from previously documented assessment. Patient and/or family bp updated on plan of care and expected duration. Pain level reassessed. Patient is alert, oriented x 3, equal unlabored respirations, skin warm/dry/pink. PER TRANSFER CENTER, TRANSFER ON HOLD PENDING AVAILABLE BED. 19:30 Reassessment: Patient appears in no apparent distress at this time. Patient and/or em family updated on plan of care and expected duration. Pain level reassessed. Patient is alert, oriented x 3, equal unlabored respirations, skin warm/dry/pink. pt states he will accept being transferred to another facility. 22:38 Reassessment: Patient appears in no apparent distress at this time. Patient and/or em family updated on plan of care and expected duration. Pain level reassessed. Patient is alert, oriented x 3, equal unlabored respirations, skin warm/dry/pink. 23:35 Reassessment: report given to MATHEW Welch at [facility], pending EMS transportation. em 23:50 Reassessment: request something else for pain, Dr. Sanchez notified, received VO for 4 em mg morphine IVP x 1. 12/31 00:32 Reassessment: report given to EMS. em Vital Signs: 12/30 05:28 BP 143 / 84; Pulse 92; Resp 16; Temp 98.9; Pulse Ox 99% ; Weight 97.52 kg; Height 5 ft. rv 11 in. (180.34 cm); Pain 10/10; 07:00 BP 156 / 81; Pulse 79; Resp 16; Pulse Ox 98% ; bp 08:11 BP 148 / 78; Pulse 81; Resp 16; Pulse Ox 93% on R/A; bp 09:15 BP 133 / 75; Pulse 77; Resp 16; Pulse Ox 95% ; bp 10:20 BP 130 / 77; Pulse 71; Resp 16; Pulse Ox 96% ; bp 12:30 BP 137 / 79; Pulse 72; Resp 16; Pulse Ox 97% ; bp 16:30 BP 160 / 67; Pulse 64; Resp 16; Pulse Ox 97% ; bp 17:30 BP 172 / 69; Pulse 62; Resp 17; Pulse Ox 97% ; bp 18:30 Pulse 70; Resp 16; Pulse Ox 97% ; bp 23:00 BP 157 / 71; Pulse 66; Resp 18; Pulse Ox 94% on R/A; Pain 10/10; em 05:28 Body Mass Index 29.99 (97.52 kg, 180.34 cm) rv Yuliya Coma Score: 12:14 Eye Response: spontaneous(4). Verbal Response: oriented(5). Motor Response: obeys ma2 commands(6). Total: 15. ED Course: 05:14 Patient arrived in ED. es 05:15 Davide Gonzalez MD is Private Physician. es 05:23 Seng Avelar RN is Primary Nurse. rv 05:28 Guillermo López MD is Attending Physician. mh7 05:30 Triage completed. rv 05:32 Arm band placed on right wrist. Patient placed in the treatment room, on a stretcher, rv Patient notified of wait time. 05:32 Patient has correct armband on for positive identification. Pulse ox on. NIBP on. rv 05:50 Inserted saline lock: 20 gauge in right antecubital area, using aseptic technique. rv Blood collected. 05:50 Initial lab(s) drawn, by sc, sent to lab. rv 06:20 CT Head C Spine In Process Unspecified. EDMS 07:03 Attending Physician role handed off by Guillermo López MD ma2 07:03 Kings Downing MD is Attending Physician. ma2 08:27 Primary Nurse role handed off by Seng Avelar, MATHEW bd 09:15 Wilfrido Abreu, MATHEW is Primary Nurse. bp 12:16 MRI - Brain W/Wo Cont In Process Unspecified. EDMS 15:26 C Spine Wo Cont In Process Unspecified. EDMS 16:54 initiated transfer to [facility]. bd 18:07 was contacted by Rachael Yoder at [facility], states that if pt and dr are bd willing to wait a couple of hrs a bed will be available for pt. dr downing states that is ok. 22:54 Mae Madrid admin approval at [id number], accepting physician Randy Aviles pt to go to bed [id number], [address] [place] [address]. 12/31 00:42 No provider procedures requiring assistance completed. Patient transferred, IV remains em in place. Administered Medications: 12/30 05:55 Drug: Benadryl (diphenhydrAMINE) 50 mg Route: IVP; Site: right antecubital; rv 07:55 Follow up: Response: No adverse reaction; Pain is unchanged, physician notified bp 05:55 Drug: Reglan 10 mg Route: IVP; Site: right antecubital; rv 07:55 Follow up: Response: No adverse reaction; Pain is unchanged, physician notified bp 06:00 Drug: NS 0.9% 1000 ml Route: IV; Rate: 1000 ml; Site: right antecubital; rv 07:00 Drug: TORadol 30 mg Route: IVP; Site: right antecubital; bp 07:55 Follow up: Response: No adverse reaction; Pain is unchanged, physician notified bp 07:54 Drug: Dilaudid (HYDROmorphone) 1 mg Route: IVP; Site: right antecubital; bp 10:09 Follow up: Response: Pain is decreased bp 15:00 Drug: Dilaudid (HYDROmorphone) 1 mg Route: IVP; Site: right antecubital; bp 16:49 Follow up: Response: No adverse reaction; Pain is decreased bp 16:50 Drug: Decadron - Dexamethasone 10 mg Route: IVP; Site: right antecubital; bp 17:01 Follow up: Response: No adverse reaction bp 12/31 00:01 Drug: morphine 4 mg Route: IVP; Site: right antecubital; em 00:30 Follow up: Response: No adverse reaction; Marked relief of symptoms; Pain is decreased em Outcome: 12/30 17:16 ER care complete, transfer ordered by MD. mojica 12/31 00:42 Transferred by ground EMS to [facility], Transfer form completed. em X-rays sent w/ patient. Condition: stable Instructed on the need for transfer, Demonstrated understanding of instructions. 00:44 Patient left the ED. em Signatures: Dispatcher [employer] Kathy Maravilla Steven, RN Deyanira Joshua Edgar, RN RN em Peltier, Brian, RN RN bp Alzahri, Mohammad, MD MD ma2 Seng Avelar RN RN rv Holmes, Maurice, MD MD [id number]
--- NOTE | 2020-12-30 17:17 | EDPHYS ---
Physician Documentation [facility] Name: Vu Park Age: 55 yrs Sex: Male : 1965 Arrival Date: 12/30/2020 Time: 05:14 Bed 18 Private MD: Daivde Gonzalez B ED Physician Kings Lerner HPI: 12/30 05:59 This 55 yrs old Black Male presents to ER via Ambulatory with complaints of Headache, mh7 over 12hrs. 05:59 The patient complains of pain to the top of head. The patient describes the headache as mh7 intermittent, throbbing. Onset: The symptoms/episode began/occurred 2 day(s) ago. Associated signs and symptoms: Pertinent positives: Photophobia Pertinent negatives: altered mental status, dizziness, fever, malaise, nausea, neck stiffness, paresthesias, rash, sinus congestion, sinus tenderness, vision changes, vision loss, vomiting, weakness, vertigo. Severity of symptoms: At its worst the pain was moderate, yesterday, in the emergency department the pain is unchanged. Headache History: The patient has had previous headaches and this one is similar to previous episodes. The symptoms are alleviated by nothing. the symptoms are aggravated by lights, noise, stress, touching head. Historical: - Allergies: 05:30 Vicodin; rv - PMHx: 05:30 Hyperlipidemia; Hypertension; rv - PSHx: 05:30 None; rv - Immunization history:: Adult Immunizations unknown. - Social history:: Smoking status: Patient reports the use of cigarette tobacco products, cigars. ROS: 05:59 Constitutional: Negative for fever, chills, and weight loss, Eyes: Negative for injury, mh7 pain, redness, and discharge, ENT: Negative for injury, pain, and discharge, Neck: Negative for injury, pain, and swelling, Cardiovascular: Negative for chest pain, palpitations, and edema, Respiratory: Negative for shortness of breath, cough, wheezing, and pleuritic chest pain, Abdomen/GI: Negative for abdominal pain, nausea, vomiting, diarrhea, and constipation, Back: Negative for injury and pain, : Negative for injury, bleeding, discharge, and swelling, MS/Extremity: Negative for injury and deformity, Skin: Negative for injury, rash, and discoloration, Psych: Negative for depression, anxiety, suicide ideation, homicidal ideation, and hallucinations, Allergy/Immunology: Negative for hives, rash, and allergies, Endocrine: Negative for neck swelling, polydipsia, polyuria, polyphagia, and marked weight changes, Hematologic/Lymphatic: Negative for swollen nodes, abnormal bleeding, and unusual bruising. Exam: 05:59 Constitutional: This is a well developed, well nourished patient who is awake, alert, mh7 and in no acute distress. 05:59 Eyes: Pupils equal round and reactive to light, extra-ocular motions intact. Lids and lashes normal. Conjunctiva and sclera are non-icteric and not injected. Cornea within normal limits. Periorbital areas with no swelling, redness, or edema. ENT: Nares patent. No nasal discharge, no septal abnormalities noted. Tympanic membranes are normal and external auditory canals are clear. Oropharynx with no redness, swelling, or masses, exudates, or evidence of obstruction, uvula midline. Mucous membranes moist. Neck: Trachea midline, no thyromegaly or masses palpated, and no cervical lymphadenopathy. Supple, full range of motion without nuchal rigidity, or vertebral point tenderness. No Meningismus. Chest/axilla: Normal chest wall appearance and motion. Nontender with no deformity. No lesions are appreciated. Cardiovascular: Regular rate and rhythm with a normal S1 and S2. No gallops, murmurs, or rubs. Normal PMI, no JVD. No pulse deficits. Respiratory: Lungs have equal breath sounds bilaterally, clear to auscultation and percussion. No rales, rhonchi or wheezes noted. No increased work of breathing, no retractions or nasal flaring. Abdomen/GI: Soft, non-tender, with normal bowel sounds. No distension or tympany. No guarding or rebound. No evidence of tenderness throughout. Back: No spinal tenderness. No costovertebral tenderness. Full range of motion. Skin: Warm, dry with normal turgor. Normal color with no rashes, no lesions, and no evidence of cellulitis. MS/ Extremity: Pulses equal, no cyanosis. Neurovascular intact. Full, normal range of motion. Neuro: Awake and alert, GCS 15, oriented to person, place, time, and situation. Cranial nerves II-XII grossly intact. Motor strength 5/5 in all extremities. Sensory grossly intact. Cerebellar exam normal. Normal gait. Psych: Awake, alert, with orientation to person, place and time. Behavior, mood, and affect are within normal limits. 05:59 Head/face: Noted is tenderness, that is moderate, of the top of head. Vital Signs: 05:28 BP 143 / 84; Pulse 92; Resp 16; Temp 98.9; Pulse Ox 99% ; Weight 97.52 kg; Height 5 ft. rv 11 in. (180.34 cm); Pain 10/10; 07:00 BP 156 / 81; Pulse 79; Resp 16; Pulse Ox 98% ; bp 08:11 BP 148 / 78; Pulse 81; Resp 16; Pulse Ox 93% on R/A; bp 09:15 BP 133 / 75; Pulse 77; Resp 16; Pulse Ox 95% ; bp 10:20 BP 130 / 77; Pulse 71; Resp 16; Pulse Ox 96% ; bp 12:30 BP 137 / 79; Pulse 72; Resp 16; Pulse Ox 97% ; bp 16:30 BP 160 / 67; Pulse 64; Resp 16; Pulse Ox 97% ; bp 17:30 BP 172 / 69; Pulse 62; Resp 17; Pulse Ox 97% ; bp 18:30 Pulse 70; Resp 16; Pulse Ox 97% ; bp 23:00 BP 157 / 71; Pulse 66; Resp 18; Pulse Ox 94% on R/A; Pain 10/10; em 05:28 Body Mass Index 29.99 (97.52 kg, 180.34 cm) rv Pollock Coma Score: 12:14 Eye Response: spontaneous(4). Verbal Response: oriented(5). Motor Response: obeys ma2 commands(6). Total: 15. MDM: 07:03 Patient medically screened. ma2 10:43 ED course: patient has intractable headache and neck pain, headache is gradual sah is ma2 unlikley and no meningism on exam, he does need to be observed for intractable headache, i called dr. esparza and left voice note also called dr. dill requested admission. dr. dill advised for mri neck prior to admission to rule out neurosurgical emergencies. . 12:14 Differential diagnosis: intractable neck pain. Data reviewed: vital signs, nurses ma2 notes. Counseling: I had a detailed discussion with the patient and/or guardian regarding: the historical points, exam findings, and any diagnostic results supporting the discharge/admit diagnosis, the presence of at least one elevated blood pressure reading (>120/80) during this emergency department visit, the need for outpatient follow up. Response to treatment: the patient's symptoms have markedly improved after treatment. 17:04 ED course: mri shows c3-4 central disc herniation measures 4 to 5 mm with moderate ma2 central canal stenosis with central cord edema at c3-4 caused by prominent disc herniation . 17:14 ED course: will transfer for higher level of care as he needs neurosurgery which is not ma2 available in our hospital, discussed and accepted by dr. moy. 12/30 05:42 Order name: CBC with Diff; Complete Time: 06:29 mh7 12/30 05:42 Order name: Basic Metabolic Panel; Complete Time: 06:53 mh7 12/30 05:42 Order name: LFT's; Complete Time: 06:53 mh7 12/30 05:42 Order name: Protime (+inr); Complete Time: 06:29 mh7 12/30 05:42 Order name: Ptt, Activated; Complete Time: 06:29 mh7 12/30 05:42 Order name: CT Head C Spine; Complete Time: 14:46 mh7 12/30 09:53 Order name: MRI - Brain W/Wo Cont; Complete Time: 13:00 ma2 12/30 13:10 Order name: C Spine Wo Cont; Complete Time: 16:35 EDMS 12/30 17:01 Order name: SARS-COV-2 RT PCR; Complete Time: 17:03 EDMS Administered Medications: 05:55 Drug: Benadryl (diphenhydrAMINE) 50 mg Route: IVP; Site: right antecubital; rv 07:55 Follow up: Response: No adverse reaction; Pain is unchanged, physician notified bp 05:55 Drug: Reglan 10 mg Route: IVP; Site: right antecubital; rv 07:55 Follow up: Response: No adverse reaction; Pain is unchanged, physician notified bp 06:00 Drug: NS 0.9% 1000 ml Route: IV; Rate: 1000 ml; Site: right antecubital; rv 07:00 Drug: TORadol 30 mg Route: IVP; Site: right antecubital; bp 07:55 Follow up: Response: No adverse reaction; Pain is unchanged, physician notified bp 07:54 Drug: Dilaudid (HYDROmorphone) 1 mg Route: IVP; Site: right antecubital; bp 10:09 Follow up: Response: Pain is decreased bp 15:00 Drug: Dilaudid (HYDROmorphone) 1 mg Route: IVP; Site: right antecubital; bp 16:49 Follow up: Response: No adverse reaction; Pain is decreased bp 16:50 Drug: Decadron - Dexamethasone 10 mg Route: IVP; Site: right antecubital; bp 17:01 Follow up: Response: No adverse reaction bp 12/31 00:01 Drug: morphine 4 mg Route: IVP; Site: right antecubital; em 00:30 Follow up: Response: No adverse reaction; Marked relief of symptoms; Pain is decreased em Disposition: 12/30/20 17:16 Transfer ordered to [facility]. Diagnosis is Cervical disc disorder, unspecified - Central Disc prolapse at level of C3/C3 with canal stenosis and central cord edema . - Reason for transfer: Higher level of care. - Accepting physician is Dr. Moy. - Condition is Stable. - Problem is new. - Symptoms are unchanged. Signatures: Dispatcher [employer] EDBaldemar Vogt RN RN em Peltier, Brian, RN RN bp Alzahri, Mohammad, MD MD ma2 Seng Avelar RN RN rv Guillermo López MD MD mh7 Corrections: (The following items were deleted from the chart) 12/30 14:32 13:08 MRA Neck W/Wo Cont ordered. EDSC EDMS 16:14 14:37 CORONAVIRUS+MR.LAB.BRZ ordered. EDSC EDMS 12/31 00:44 12/30 17:16 12/30/2020 17:16 Transfer ordered to [facility]. em Diagnosis is Cervical disc disorder, unspecified - Central Disc prolapse at level of C3/C3 with canal stenosis and central cord edema . Reason for transfer: Higher level of care. Accepting physician is Dr. Moy. Condition is Stable. Problem is new. Symptoms are unchanged. ma2
[2020-12-31] MEDS ORDERED: MORPHINE 4 MG/ML SYR ONE (00:15)
[2020-12-31 00:56] VITALS: TEMP 98.9
[2020-12-31 01:08] VITALS: BP 157/71; O2SAT 94
== END 2020-12-31 00:44 | disposition short-term general hospital (02) ==
LOC: ER 05:11
DX: M50.21 Other cervical disc displacement, high cervical region (principal); M48.02 Spinal stenosis, cervical region; I10 Essential (primary) hypertension; F17.290 Nicotine dependence, other tobacco product, uncomplicated; Z88.5 Allergy status to narcotic agent; Z20.822 Contact with and (suspected) exposure to COVID-19
CPT/HCPCS: 85025; 80048; 36415; 85610; 80076; 85730; 70450; 72125; 72141; 70553; U0003; A9577; J2765; J1200; J1100; J1170 ×2; J7030; 96374; 96375; 99285

== ENCOUNTER 2025-05-21 11:51 | Emergency (ER) | payer BC, OTHER ==
[2025-05-21] MEDS ORDERED: IBUPROFEN 200 MG TAB PO ONE (12:14)
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
[2025-05-21 18:41] VITALS: TEMP 98.5; O2SAT 98
[2025-05-21 18:42] VITALS: BP 138/82
== END 2025-05-21 13:48 | disposition home or self-care (01) ==
LOC: ER 11:51
DX: M25.512 Pain in left shoulder (principal); V49.49XA Driver injured in collision with other motor vehicles in traffic accident, initial encounter; Z72.0 Tobacco use
CPT/HCPCS: 99284